=== PATIENT | male | born 1970 | race Caucasian/White ===

== ENCOUNTER 2024-02-25 15:03 | Emergency (ER) | payer BC, SELFPAY ==
[2024-02-25 15:03] VITALS: BP 168/107; BP 171/99; PULSE 81; PULSE 89; RESP 14; RESP 16; TEMP 36.8; O2SAT 98; BMI 33.5
--- NOTE | 2024-02-25 16:29 | CT_ITS ---
INDICATION: back pain EXAMINATION: CT CHEST WITHOUT CONTRAST - CT Chest W/O Contrast Injection TECHNIQUE: Helically acquired images were obtained of the chest. A radiation dose optimization technique was used for this scan. IV Contrast dosage and agent: None. COMPARISON: None. FINDINGS: LUNGS, PLEURA AND LARGE AIRWAYS: Nonspecific patchy areas of increased airspace opacity in subpleural location in the superior segment of the right lower lobe of uncertain etiology but could represent posttraumatic pulmonary contusion.. Tiny calcified granuloma in the right upper lobe No pleural effusion or thickening. No pneumothorax. THYROID: No thyroid lesions. HEART AND PERICARDIUM: Heart size is normal. No pericardial effusion. CORONARY ARTERIES: Tiny focus of coronary artery calcification VESSELS: Thoracic aorta is not dilated. MEDIASTINUM AND SHYANNE: Tiny calcified right hilar nodes. Tiny subcentimeter mediastinal nodes likely benign.. Esophagus is unremarkable. No hiatal hernia. UPPER ABDOMEN: No acute pathology. BONES: Dorsal spine demonstrates mild spondylosis No suspicious lytic or blastic abnormality. No acute fracture identified CT/Chest without Contrast IMPRESSION: Nonspecific patchy areas of increased airspace opacity in right lower lobe possibly representing pulmonary contusions given history of trauma. Old granulomatous disease on the right. Electronically Signed: Augustin Burnett MD at 17:12 EDT ,
--- NOTE | 2024-02-25 16:29 | CT_ITS ---
STUDY: CT THORACIC SPINE WITHOUT CONTRAST REASON FOR EXAM: Male, 53 years old. pain, injury RADIATION DOSAGE (If Supplied By Facility): CTDIvol = ( 29.25 ) mGy, DLP = ( 1273.96 ) mGycm TECHNIQUE: The patient was scanned in a multi detector CT scanner. High resolution imaging was performed. Images were obtained from to . Sagittal and coronal images were reconstructed. Individualized dose optimization techniques were used for this CT. COMPARISON: None. FINDINGS: Normal visualized cervical spine. Normal kyphosis of the thoracic spine. There is no substantial scoliosis. No evidence for acute fracture or subluxation. No lytic or sclerotic bony lesions.. Normal disc spaces heights. There is minor multilevel endplate spurring. The soft tissue structures are unremarkable. CT/Spine Thoracic without Contras IMPRESSION: Mild spondylosis. Otherwise normal unenhanced CT of the thoracic spine. Electronically Signed: Augustin Burnett MD at 17:06 EDT ,
[2024-02-25] MEDS: morphine 8 MG/ML Syringe IV (16:39)
[2024-02-25 16:40] LABS: Absolute Lymphocyte Count 0.95 X10^3/uL (0.83-4.51); Absolute Neutrophil Count 4.2 X10^3/uL (2.0-7.7); Basophil# 0.04 X10^3/uL; Basophil% 0.7 % (0-1); Eosinophil# 0.15 X10^3/uL; Eosinophils% 2.5 % (0-5); Hematocrit 46.3 % (40-54); Hemoglobin 15.5 g/dL (13.0-16.5); Lymphocyte # 0.95 X10^3/ul (0.83-4.51); Lymphocyte % 15.8 % (19-41); Mean Corp Hgb Conc 33.5 g/dL (32-36); Mean Corpuscular Hgb 31.7 pg (27.0-32.0); Mean Corpuscular Volume 94.7 fL (80-94); Mean Platelet Vol. 9.8 fl (6.2-12.0); Monocyte# 0.64 X10^3/uL; Monocyte% 10.6 % (0-10); NRBC Flagged by Analyzer 0 % (0-5); Neutrophil # 4.19 X10^3/uL (2.7-7.7); Neutrophil % 69.6 % (47-70); Platelet Count 188 K/mm3 (150-450); RBC Distribution Width CV 11.9 % (11.6-14.6); RBC Distribution Width SD 41.8 fl (35.1-43.9); Red Blood Count 4.89 M/mm3 (4.6-6.2)
[2024-02-25] MEDS: 0.9% Normal Saline (1000mL) 1,000 ML 1000 ML IV (16:40)
[2024-02-25 17:03] VITALS: BP 157/99; PULSE 89; RESP 16; O2SAT 99
[2024-02-25 17:13] LABS: ALB/GLOB Ratio 1.1 RATIO (0.9-2.4); AST(SGOT) 24 U/L (15-37); Alanine Aminotransfer ALT/SGPT 101 U/L (16-61); Alkaline Phosphatase 72 U/L (45-117); Anion Gap 4 (5-15); BUN 21 mg/dL (7-18); BUN/Creat Ratio 16.3 RATIO (10-20); CPK Total, Creatine Kinase 124 U/L (39-308); Calcium,Total 9.1 mg/dL (8.5-10.1); Chloride 104 mmol/L (98-107); Creatinine, Serum 1.29 mg/dL (0.70-1.30); EST Glomerular Filtration Rate 62 mL/min (>60); Est Glom Filt Rate - Afr Amer 74 mL/min (>60); Globulin 3.6 g/dL (2.2-4.2); Glucose 91 mg/dL (74-106); Potassium 4.3 mmol/L (3.5-5.1); Protein, Total 7.6 g/dL (6.4-8.2); Sodium Level 137 mmol/L (136-145)
--- NOTE | 2024-02-25 18:37 | ED.VIS.BACK ---
HPI History of Present Illness Chief Complaint: Back Informant: patient Narrative Narrative: Patient is a 53-year-old male with no stated past medical history except for recent back injury. 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 He was pouring water because duodenostomy felt snap and his left thoracic back. This was at February 04. He was seen in the ER and then followed up through Workmen's Comp. He has had significant pain since. He states he has not had any back images. States he has been multiple doses of steroids also had an injection in his back of steroids. He states that he gets pain throbbing and numbness that radiates down his left arm diffusely. It is worse whenever he puts his arm by his side and relieved when he keeps his arm above his head. Feels that his arm is getting weak because of this. He is right-hand dominant. Was told that he needs an MRI but is having a hard time getting that scheduled and followed up with through Workmen's Comp. Was also told he should follow-up with a monitoring specialist but is having a hard time getting seen because of Workmen's Comp. delays. Has been on courses of Valium, cyclobenzaprine, was recently diagnosed Mobic, has been taking [id number] ibuprofen as well as Tylenol and Midol with only minimal relief of his symptoms. States he is not really sleeping at night. He is also worried about what is going to do for work or needing FMLA. Denies any cough or difficulty breathing. Denies any change in sputum production. PFSH PFS Home Medications ?Medication ?Instructions ?Recorded ?Last Taken ?Type ibuprofen 600 mg tablet 600 mg PO TID 09/29/15 09/29/15 History naproxen 500 mg tablet 500 mg PO BID #20 tabs 09/29/15 Unknown Rx gabapentin 100 mg capsule 100 mg PO QHS #7 caps 02/25/24 Unknown Rx oxycodone 5 mg tablet 5 mg PO Q6H PRN pain 3 days #12 02/25/24 Unknown Rx tabs Allergy/AdvReac Type Severity Reaction Status Date / Time No Known Allergies Allergy Verified 02/25/24 15:04 Social History Smoking Status: Never smoker ROS ROS ED Constitutional Constitutional ED: Denies chills or fever(s) Cardiovascular Cardiovascular: Denies chest pain or palpitations Respiratory/Chest Respiratory/Chest: Denies dyspnea or dyspnea on exertion Gastrointestinal Gastrointestinal: Denies abdominal pain, nausea or vomiting Musculoskeletal Musculoskeletal: Reports back pain, neck pain and other Details: left arm pain Integumentary Denies rash Neurologic Neurologic: Reports paresthesias LUE and weakness Psychiatric Psychiatric: Denies anxiety Hematologic/Lymphatic Hematologic/Lymphatic: Denies easy bleeding or easy bruising EXAM Physical Exam Const Vital Signs: 02/25/24 15:03 02/25/24 15:03 02/25/24 17:03 Temperature 98.2 F Temperature Source Temporal Pulse Rate 81 89 89 Respiratory Rate 14 16 16 Blood Pressure 171/99 H 168/107 H 157/99 H Blood Pressure Mean 123 127 118 Pulse Ox 98 98 99 Oxygen Delivery Method Room Air Room Air Room Air 02/25/24 19:00 02/25/24 19:12 Temperature 97.6 F L Temperature Source Pulse Rate 77 77 Respiratory Rate 16 16 Blood Pressure 137/91 H 137/91 H Blood Pressure Mean 106 106 Pulse Ox 98 98 Oxygen Delivery Method Room Air Positive well nourished and well developed General Appearance ED: well developed and NAD HEENT Reports moist mucous membranes Eyes PERRL Neck supple Resp normal respiratory effort and clear to auscultation bilaterally Cardio regular rate, regular rhythm and no murmurs Cardio Narrative: 2+ radial pulses GI normal to inspection, nondistended, normoactive bowel sounds and soft to palpation Back/Spine Back/Spine Narrative: Patient has area of tenderness and spasm on palpation of the right thoracic back. No midline back tenderness Cervical Spine: Negative for cervical spine tenderness Thoracic Spine / Upper Back: paraspinal muscle tenderness left T6 and T7 Lumbar Spine / Lower Back: Negative for ROM limited Extremity normal to inspection Extremity Narrative: Normal intrinsic movements of the hand. Normal rd scientist strength. Sensation intact in all dermatomes. Patient does have some slight weakness with adduction of the arm as well as flexion of the arm. General Extremety ED: Negative for edema or tenderness General Extremity: Negative for edema Neuro oriented x3 and no sensory deficits noted Neuro Narrative: Reports paresthesias but sensation is intact to light touch throughout the left upper extremity Sensorium / Orientation: alert Motor Exam: strength 5/5 throughout Psych mental status grossly normal Psych Narrative: Anxious Skin no rashes or lesions noted and no wounds MDM MDM MDM Narrative Medical decision making narrative: Patient's evaluated for worsening left back and shoulder pain as well as pain and paresthesias going down his left arm. Patient had some type of Workmen's Compensation associated injury couple weeks ago. He has been trying to follow-up and has been referred for MRI and spine but has not been able to get this approved. He does state he has been taking high doses of Tylenol so we will check some signs of liver function including platelets as well as liver enzymes. Will obtain CT imaging. I do not think he has a limb threatening injury or acute neurologic deficit requiring emergent MRI. He is has good distal pulses and he does have sensation intact. I do not appreciate any focal weakness and seems to be more of the paresthesias that are bothering him. Patient is given IV morphine for pain control. On repeat evaluation he states his pain is much more manageable but still present. Lab work is largely normal. His ALT is mildly elevated but he has normal AST, bilirubin and normal platelets. Patient is counseled to stop taking Tylenol for some time to let his liver rest however. He is given IV Toradol for further pain control in the ER. Imaging does not show any acute traumatic process. There is a nonspecific patchy area of increased airspace opacity in the right lower lobe. Radiology thought it could be pulmonary contusion but he does not have a history of direct trauma to the area. I question if it might be a little bit of atelectasis. He denies any symptoms of pneumonia such as increased cough, shortness of breath or sputum production. No fevers reported. Will be given incentive spirometer as I wonder if he has been splinting a bit because of his back pain and spasm. Patient will be discharged home with a short course of oxycodone for further pain control. Is counseled on the risk of opioid-induced constipation. Is given referral to our spine service. Counseled that it is likely that he has a component of nerve injury or pain and given he is already had 2 courses of oral steroids and injection of steroids I do not think he needs further steroids at this time. He is agreeable with this. Is given return precautions. Discharged home in stable condition. Lab Data Attestation: I reviewed the patient's lab results. Labs: Laboratory Results - last 24 hr 02/25/24 16:20 WBC 6.0 RBC 4.89 Hgb 15.5 Hct 46.3 MCV 94.7 H MCH 31.7 MCHC 33.5 RDW Std Deviation 41.8 RDW Coeff of Lynda 11.9 Plt Count 188 MPV 9.8 Immature Gran % (Auto) 0.800 Neut % (Auto) 69.6 Lymph % (Auto) 15.8 L [place] % (Auto) 10.6 H Eos % (Auto) 2.5 Baso % (Auto) 0.7 Absolute Neuts (auto) 4.2 Absolute Lymphs (auto) 0.95 Nucleated RBC % 0 Sodium 137 Potassium 4.3 Chloride 104 Carbon Dioxide 29.0 Anion Gap 4 L BUN 21 H Creatinine 1.29 Estim Creat Clear Calc 84.70 Est GFR (MDRD) Af Amer 74 Est GFR (MDRD) Non-Af 62 BUN/Creatinine Ratio 16.3 Glucose 91 Calcium 9.1 Total Bilirubin 0.50 AST 24 ALT 101 H Alkaline Phosphatase 72 Total Creatine Kinase 124 Total Protein 7.6 Albumin 4.0 Globulin 3.6 Albumin/Globulin Ratio 1.1 Radiography Diagnostic Testing: Clinical Impression(s) from Imaging Studies Chest CT 02/25/24 16:29 IMPRESSION: Nonspecific patchy areas of increased airspace opacity in right lower lobe possibly representing pulmonary contusions given history of trauma. Old granulomatous disease on the right. Electronically Signed: Augustin Burnett MD at 17:12 EDT Reading Location ID and State: [facility] / [place] Tel [phone], Service support , Thoracic Spine CT 02/25/24 16:29 IMPRESSION: Mild spondylosis. Otherwise normal unenhanced CT of the thoracic spine. Electronically Signed: Augustin Burnett MD at 17:06 EDT , Discharge Plan Triage Chief Complaint: Back ED Provider: Génesis Laguna Dx/Rx/DC Orders Clinical Impression: Radiculopathy of thoracic region, Back pain, thoracic, Left arm numbness Instructions: ED Back Pain (Acute or Chronic), ED Radiculopathy, Cervical Prescriptions: New oxycodone 5 mg tablet 5 mg PO Q6H PRN (Reason: pain) 3 Days Qty: 12 0RF gabapentin 100 mg capsule 100 mg PO QHS Qty: 7 0RF No Action ibuprofen 600 MG tablet 600 mg PO TID naproxen 500 MG tablet 500 mg PO BID Qty: 20 0RF Primary Care Provider: Andrew Saunders Referrals: Andrew Saunders DO [Primary Care Provider] - Augustin Lamb DO [Med Staff - Active Staff] - As soon as possible Activity Restrictions/Additional Instructions: Your liver function overall is normal but one of your liver enzymes was mildly elevated. Please try to stay away from acetaminophen products for the next few days but I do not think there is any more severe permanent liver damage. You may continue to take the Mobic/meloxicam or other anti-inflammatories such as naproxen (just 1 or the other) in addition to the pain medicines prescribed today. Please use incentive spirometer as discussed to help encourage full inflation of the lungs. Print Language: Wolof Disposition Disposition: Home, Self Care Discharge Date/Time: 02/25/24 19:15
[2024-02-25 19:00] VITALS: BP 137/91; PULSE 77; RESP 16; O2SAT 98
[2024-02-25 19:12] VITALS: BP 137/91; PULSE 77; RESP 16; TEMP 36.4; O2SAT 98
== END 2024-02-25 19:15 | disposition home or self-care (01) ==
PROVIDERS: Emergency Provider Emergency Medicine; PCP Student in an Organized Health Care Education/Training Program; Referring Provider Emergency Medicine; Visit Provider Emergency Medicine
DX: M54.14 Radiculopathy, thoracic region (principal)
CPT/HCPCS: 71250; 72128; 80053; 82550; 85025; 96361; 96374; 99284; J7030; A4216